=== PATIENT | female | born 1965 | race American Indian/Alaskan Native ===

== ENCOUNTER 2017-11-23 09:47 | Emergency (ER) | payer OTHER ==
[2017-11-23 10:06] VITALS: RESP 17; TEMP 97.9
--- NOTE | 2017-11-23 10:06 | ED PDOC ---
Arrival/HPI - General Time Seen by Provider: 11/23/17 10:01 Historian: Patient - History of Present Illness Narrative History of Present Illness (Text): 11/23/17 10:03 52 y/o female, nkda, post menopausal, c/o lower back pain x 2 days. Aching pain , aggravated by movement, non-radiating, no pain medication taken at home, no fever or chills, no urinary or bowel incontinence/retention, no night sweat, no rash, no other medical or psychological complaints. Past Medical History - Provider Review Nursing Documentation Reviewed: Yes Family/Social History - Physician Review Nursing Documentation Reviewed: Yes Family/Social History: Unknown Family HX Allergies/Home Meds Allergies/Adverse Reactions: Allergies No Known Allergies Allergy (Verified 11/23/17 10:04) Review of Systems - Review of Systems Constitutional: absent: Fatigue, Fevers Eyes: absent: Vision Changes ENT: absent: Hearing Changes Respiratory: absent: SOB, Cough Cardiovascular: absent: Chest Pain Gastrointestinal: absent: Abdominal Pain, Nausea, Vomiting Musculoskeletal: Back Pain, Myalgias. absent: Arthralgias, Neck Pain, Joint Swelling Skin: absent: Rash, Pruritis Neurological: absent: Headache, Dizziness Psychiatric: absent: Anxiety, Depression, Suicidal Ideation Physical Exam Vital Signs Reviewed: Yes Vital Signs Temp Pulse Resp BP Pulse Ox 11/23/17 11:45 97.9 F 68 17 121/80 99 11/23/17 11:42 97.9 F 68 17 129/80 99 11/23/17 10:05 97.9 F 70 17 131/85 97 Temperature: Afebrile Blood Pressure: Normal Pulse: Regular Respiratory Rate: Normal Appearance: Positive for: Well-Appearing, Non-Toxic, Comfortable Pain Distress: Moderate Mental Status: Positive for: Alert and Oriented X 3 - Systems Exam Head: Present: Atraumatic, Normocephalic Pupils: Present: PERRL Extroacular Muscles: Present: EOMI Conjunctiva: Present: Normal Mouth: Present: Moist Mucous Membranes Neck: Present: Normal Range of Motion Respiratory/Chest: Present: Clear to Auscultation, Good Air Exchange. No: Respiratory Distress, Accessory Muscle Use Cardiovascular: Present: Regular Rate and Rhythm, Normal S1, S2. No: Murmurs Abdomen: No: Tenderness, Distention, Peritoneal Signs, Rebound, Guarding Back: Present: Normal Inspection, Paraspinal Tenderness (LS spine: +ttp on the lt. paraspinal muscle region, no step off with no midline tenderness, FROM without limitation, sensation intact, motor 5/5, ). No: CVA Tenderness, Midline Tenderness Upper Extremity: Present: Normal Inspection. No: Cyanosis, Edema Lower Extremity: Present: Normal Inspection. No: Edema Neurological: Present: GCS=15, CN II-XII Intact, Speech Normal Skin: Present: Warm, Dry, Normal Color. No: Rashes Psychiatric: Present: Alert, Oriented x 3, Normal Insight, Normal Concentration Medical Decision Making ED Course and Treatment: 11/23/17 10:06 -LS spine xray -toradol -Observe and reassess 11/23/17 11:13 -Xray show no fracture or subluxation -Pain is much decreased, walking with normal gait and posture, no focal neurological deficits. -Discharge home with naproxen, flexeril, bed rest, follow up with your own pmd and orthopedic within 2 days, return to the ER for any new or worsening signs or symptoms. - RAD Interpretation Radiology Orders: 11/23/17 10:09 LS SPINE WITH OBL > 18 YRS OLD [RAD] Stat PROCEDURE: Radiographs of the Lumbar Spine. HISTORY: low back pain COMPARISON: No prior. FINDINGS: BONES: Normal alignment. No listhesis. No fracture. DISC SPACES: Unremarkable. OTHER FINDINGS: None. IMPRESSION: Unremarkable radiographs of the lumbar spine. Crushing Machine Operator: Radiologist - Medication Orders Current Medication Orders: Discontinued Medications Ketorolac Tromethamine (Toradol) 60 mg IM STAT STA Stop: 11/23/17 10:10 Last Admin: 11/23/17 10:15 Dose: 60 mg MAR Pain Assessment Document 11/23/17 10:15 [facility] (Rec: 11/23/17 10:15 [facility] [id number]) Pain Reassessment Is this a pain reassessment? No Sleep Is patient sleeping during reassessment? 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 Disposition/Present on Arrival - Present on Arrival Any Indicators Present on Arrival: No History of DVT/PE: No History of Uncontrolled Diabetes: No Urinary Catheter: No History of Decub. Ulcer: No - Disposition Have Diagnosis and Disposition been Completed?: Yes Diagnosis: Low back pain Disposition: HOME/ ROUTINE Disposition Time: 11:15 Patient Plan: Discharge Condition: GOOD Additional Instructions: -Discharge home with naproxen, flexeril, bed rest, follow up with your own pmd and orthopedic within 2 days, return to the ER for any new or worsening signs or symptoms. Prescriptions: Cyclobenzaprine [Cyclobenzaprine HCl] 10 mg PO TID PRN #21 tab PRN Reason: Other Naproxen 500 mg PO BID PRN #20 tablet PRN Reason: Other Referrals: Carson Chan MD [Staff Provider] - Follow up with primary Forms: WORK NOTE
[2017-11-23 10:09] VITALS: BMI 29.2
[2017-11-23 11:43] VITALS: PULSE 68; O2SAT 99
[2017-11-23 11:45] VITALS: BP 121/80
--- NOTE | 2017-11-23 14:35 | RAD ---
PROCEDURE: Radiographs of the Lumbar Spine. HISTORY: low back pain COMPARISON: No prior. FINDINGS: BONES: Normal alignment. No listhesis. No fracture. DISC SPACES: Unremarkable. OTHER FINDINGS: None. IMPRESSION: Unremarkable radiographs of the lumbar spine.
== END 2017-11-23 11:47 | disposition home or self-care (01) ==
LOC: ED 09:47 → MERGE 09:47 → ED 11:47
DX: M54.5 Low back pain (principal)
CPT/HCPCS: 72110; 96372; 99283; J1885